=== PATIENT | male | born 1965 | race Caucasian/White ===

== ENCOUNTER → 2024-04-08 08:44 | Outpatient (REF) | payer SELFPAY | LOC: RAD 08:44 | PROVIDERS: ATTENDING PHYSICIAN Internal Medicine | DX: E78.2 Mixed hyperlipidemia (principal); R29.810 Facial weakness; R51.9 Headache, unspecified | CPT/HCPCS: 75571 ==

== ENCOUNTER → 2024-04-12 06:19 | Day surgery (SDC) | payer OTHER, SELFPAY | LOC: GI 06:19 | PROVIDERS: ATTENDING PHYSICIAN Internal Medicine | DX: Z12.11 Encounter for screening for malignant neoplasm of colon (principal); D12.2 Benign neoplasm of ascending colon; K63.5 Polyp of colon | CPT/HCPCS: 45385; 45380; 88305 ==

== ENCOUNTER → 2024-04-14 14:41 | Outpatient (REF) | payer OTHER, SELFPAY | LOC: MRI 3T 14:41 | PROVIDERS: ATTENDING PHYSICIAN Internal Medicine | DX: R29.810 Facial weakness (principal); R51.9 Headache, unspecified | CPT/HCPCS: 70551 ==